=== PATIENT | female | born 1930 | race Caucasian/White ===

== ENCOUNTER 2017-08-27 05:29 | Inpatient (IN) | payer OTHER, MEDICARE ==
--- NOTE | 2017-08-27 05:57 | EDPHY ---
H & P Stated Complaint: Hematuria, painful to pee Time Seen by Provider: 08/27/17 05:41 HPI/ROS: Chief Complaint: Blood in urine, frequent urination HPI: 86-year-old woman has been having increased urinary frequency with burning with urination and blood in your urine since midnight. She states she has got about about 10 times. She had some well abdominal cramping. Significant worsening pain when she urinates. His has multiple clots. Does not have a history of similar episodes in the past. No fevers or chills. No nausea or vomiting. She is not on any blood thinning medications. She is had a hysterectomy. Does not believe it is vaginal. ROS: 10 point Review of Systems is negative except as noted in the HPI. PMH: Denies Social History: No smoking Family History: non-contributory Physical Exam: Gen: Awake, Alert, No Distress HEENT: Nose: no rhinorrhea Eyes: PERRLA, EOMI Mouth: Moist mucosa Neck: Supple, no JVD Chest: nontender, lungs clear to auscultation Heart: S1, S2 normal, no murmur Abd: Soft, moderate suprapubic tenderness to palpation, no guarding Back: no CVA tenderness, no midline tenderness Ext: no edema, non-tender Skin: no rash Neuro: CN II-XII intact, Sensation grossly intact, Strength 5/5 in bilateral upper and lower extremities - Personal History Current Tetanus Diphtheria and Acellular Pertussis (TDAP): Unsure - Medical/Surgical History Hx Asthma: No Hx Chronic Respiratory Disease: No Hx Diabetes: No Hx Cardiac Disease: No Hx Renal Disease: No Hx Cirrhosis: No Hx Alcoholism: No Hx HIV/AIDS: No Hx Splenectomy or Spleen Trauma: No Other PMH: Vertigo, "left vent blockage" - Social History Smoking Status: Never smoked Constitutional: Initial Vital Signs Temperature (C) 36.8 C 08/27/17 05:30 Heart Rate 89 08/27/17 05:30 Respiratory Rate 20 08/27/17 05:30 Blood Pressure 166/84 H 08/27/17 05:30 O2 Sat (%) 94 08/27/17 05:30 O2 Delivery Mode Room Air Allergies/Adverse Reactions: No Known Allergies Allergy (Unverified 08/27/17 05:30) Medical Decision Making ED Course/Re-evaluation: Bladder scan shows 750 mL in her bladder. Irrigating Becerra was placed. Patient passed large amounts of blood and clots. I have ordered a CBC and coags. Urinalysis initially was rejected but now has been sent. Given her age and her gross hematuria with clots in urinary retention I discussed with the hospitalist, Dr. Carias. - Data Points Laboratory Results: Laboratory Results 08/27/17 06:45 08/27/17 06:45 08/27/17 08/27/17 08/27/17 06:45 06:45 06:45 WBC RBC Hgb Hct MCV MCH MCHC RDW Plt Count MPV Neut % (Auto) Lymph % (Auto) Phillips % (Auto) Eos % (Auto) Baso % (Auto) Nucleat RBC Rel Count Absolute Neuts (auto) Absolute Lymphs (auto) Absolute Monos (auto) Absolute Eos (auto) Absolute Basos (auto) Absolute Nucleated RBC Immature Gran % Immature Gran # PT 14.4 SEC SEC (12.0-15.0) INR 1.10 (0.83-1.16) APTT 26.7 SEC SEC (23.0-38.0) Sodium 139 mEq/L mEq/L (135-145) Potassium 4.5 mEq/L mEq/L (3.3-5.0) Chloride 102 mEq/L mEq/L (97-110) Carbon Dioxide 26 mEq/l mEq/l (22-31) Anion Gap 11 mEq/L mEq/L (8-16) BUN 24 mg/dL H mg/dL (7-23) Creatinine 0.6 mg/dL mg/dL (0.6-1.0) Estimated GFR > 60 Glucose 103 mg/dL H mg/dL (70-100) Calcium 8.7 mg/dL mg/dL (8.5-10.4) Urine Color Pending Urine Appearance Pending Urine pH Pending Ur Specific Tullos Pending Urine Protein Pending Urine Ketones Pending Urine Blood Pending Urine Nitrate Pending Urine Bilirubin Pending Urine Urobilinogen Pending Ur Leukocyte Esterase Pending Urine Glucose Pending 08/27/17 08/27/17 06:45 05:57 WBC 7.08 10^3/uL 10^3/uL (3.80-9.50) RBC 4.13 10^6/uL L 10^6/uL (4.18-5.33) Hgb 12.8 g/dL g/dL (12.6-16.3) Hct 38.1 % % (38.0-47.0) MCV 92.3 fL fL (81.5-99.8) MCH 31.0 pg pg (27.9-34.1) MCHC 33.6 g/dL g/dL (32.4-36.7) RDW 13.4 % % (11.5-15.2) Plt Count 217 10^3/uL 10^3/uL (150-400) MPV 9.6 fL fL (8.7-11.7) Neut % (Auto) 77.4 % H % (39.3-74.2) Lymph % (Auto) 15.5 % % (15.0-45.0) Phillips % (Auto) 5.8 % % (4.5-13.0) Eos % (Auto) 0.6 % % (0.6-7.6) Baso % (Auto) 0.4 % % (0.3-1.7) Nucleat RBC Rel Count 0.0 % % (0.0-0.2) Absolute Neuts (auto) 5.48 10^3/uL 10^3/uL (1.70-6.50) Absolute Lymphs (auto) 1.10 10^3/uL 10^3/uL (1.00-3.00) Absolute Monos (auto) 0.41 10^3/uL 10^3/uL (0.30-0.80) Absolute Eos (auto) 0.04 10^3/uL 10^3/uL (0.03-0.40) Absolute Basos (auto) 0.03 10^3/uL 10^3/uL (0.02-0.10) Absolute Nucleated RBC 0.00 10^3/uL 10^3/uL (0-0.01) Immature Gran % 0.3 % % (0.0-1.1) Immature Gran # 0.02 10^3/uL 10^3/uL (0.00-0.10) PT INR APTT Sodium Potassium Chloride Carbon Dioxide Anion Gap BUN Creatinine Estimated GFR Glucose Calcium Urine Color REJ Urine Appearance REJ Urine pH REJ Ur Specific Tullos REJ Urine Protein REJ Urine Ketones REJ Urine Blood REJ Urine Nitrate REJ Urine Bilirubin REJ Urine Urobilinogen REJ Ur Leukocyte Esterase REJ Urine Glucose REJ Departure - Departure Disposition: [facility] Inpatient Acute Clinical Impression: Hematuria, Urinary retention Condition: Fair Referrals: Merissa Canseco MD [Primary Care Provider] - As per Instructions
[2017-08-27 06:55] LABS: PLATELET COUNT 217 10^3/uL (150-400)
[2017-08-27 07:03] LABS: INR 1.1 (0.83-1.16); PROTIME(PATIENT) 14.4 SEC (12.0-15.0)
[2017-08-27] MEDS ORDERED: ONDANSETRON 4 MG/2 ML VIAL IVP PRN (07:48)
[2017-08-27] MEDS: NS 1,000 ML IV SCH ×2 (10:04→23:56)
[2017-08-27] MEDS ORDERED: CARBOXYMETHYLCELLULOSE 1% 0.4 ML DROPERETTE EACHEYE PRN (11:01)
--- NOTE | 2017-08-27 11:27 | GHP ---
[f rep st] HISTORY AND PHYSICAL DATE OF ADMISSION: 08/27/2017 HISTORY OF PRESENT ILLNESS: The patient is a pleasant 86-year-old female with a history of left bund le branch block, presents with hematuria. Yesterday, she noticed some pinkish urine with some small red dots in it. Overnight, between midnight and 5 a.m., she had about 5 episodes of urinary urgency with passing of clots and difficulty urinating. She has had no fever and chills. It is not clear th at she had dysuria prior to this. She has had no flank pain. No previous history of hematuria. She has been a lifelong nonsmoker. e has not had drenching night sweats or unexplained weight loss lately. REVIEW OF SYSTEMS: Complete 10-point review of systems conducted and negative, except as noted in th e HPI. ALLERGIES: No known drug allergies. HOME MEDICATIONS: Aspirin, carboxymethylcellulose, cyanocobalamin, doxepin, multivitamin, and herbal s. PAST MEDICAL HISTORY: Left bundle branch block, coronary artery disease, managed medically. SOCIAL HISTORY: She lives with her son. Her last October 13. FAMILY HISTORY: Reviewed and unremarkable. Parents . PHYSICAL EXAMINATION: VITAL SIGNS: Temp 37, blood pressure 166/84, pulse 89, breathing 20 times a m inute, 94% on room air. GENERAL: No acute distress. HEENT: Sclerae anicteric. Oropharynx clear. Mucous membranes are moist. NECK: Supple, without lymphadenopathy or JVD. LUNGS: Clear to auscul tation bilaterally. HEART: S1, S2, without murmurs. ABDOMEN: Soft, nontender, nondistended. LOWE R EXTREMITIES: Without edema. Calves are nontender. SKIN: Without rash. : Exam shows pink uri ne in the Becerra. There is no suprapubic tenderness. LABS: White count 7.1, hematocrit 38. Platelets are 217,000. Coags are normal. Sodium 139, potass ium 4.5, chloride 102, bicarb 26, BUN 24, creatinine 0.6. Glucose is 103. UA shows 50-180 red cells , 50-180 white cells. There is no imaging. I have discussed the case with Dr. Ernst Hunter. ASSESSMENT/PLAN: An 86-year-old female with gross hematuria. 1. Gross hematuria with obstruction. Three-way Becerra is in place. We will continue this today. 2. Causative hematuria. I have ordered an ultrasound to evaluate for a renal mass or large kidney s tone or bladder clot. She will ultimately need cystoscopy sooner if there is an obstructing clot. 3. Coronary disease. We will follow. Continue her aspirin after her hematuria has resolved. This is not the cause of her hematuria. 4. Prophylaxis. Pharmacologic prophylaxis indicated, but for now, we will continue with SCDs. 5. Disposition: Inpatient status as I anticipate greater than 2 midnights required for the manageme nt of gross hematuria. /[id number]/MODL
[2017-08-27] MEDS: CYANO/VITAMIN B12 1000 MCG TAB PO SCH (12:12)
--- NOTE | 2017-08-27 14:03 | PDMN ---
Medical Necessity Medical necessity: est los>2mn for eval and rx of gross hematuria with obstruction, r/o renal mass vs large kidney stone vs bladder clot; admit for Becerra/CBI, imaging, and possible cysto; comorbid L BBB, CAD on ASA; per order and H&P 08/27/17
[2017-08-28] MEDS: ACETAMINOPHEN 325 MG TAB PO PRN (03:40)
[2017-08-28 05:08] LABS: PLATELET COUNT 214 10^3/uL (150-400)
[2017-08-28 05:21] LABS: INR 1.1 (0.83-1.16); PROTIME(PATIENT) 14.4 SEC (12.0-15.0)
[2017-08-28] MEDS ORDERED: Herbals/Supplements -Info Only PO SCH (09:00)
[2017-08-28] MEDS: MULTIVITAMINS 1 EACH TAB PO SCH (09:08)
[2017-08-28] MEDS: CYANO/VITAMIN B12 1000 MCG TAB PO SCH (09:08)
--- NOTE | 2017-08-28 13:56 | HOSPPROG ---
Hospitalist Progress Note Assessment/Plan: 86 yo F w hemorrhagic cystitis hemorrhagic cystitis: dc bladder irrigation dc willoughby hematuria: needs outpt cystoscopy ultrasounds neg for renal mass UTI: presumed cause continue abx proph: scd's given hematuria Subjective: case d/w dr nolasco- no renal mass, no clot in bladder Objective: Vital Signs Temp Pulse Resp BP Pulse Ox 36.8 C 77 18 132/64 H 92 08/28/17 10:05 08/28/17 10:05 08/28/17 10:05 08/28/17 10:05 08/28/17 10:05 Laboratory Results 08/28/17 04:24 08/28/17 04:24 08/27/17 08/28/17 08/29/17 05:59 05:59 05:59 Intake Total 1452 650 Output Total 3725 Balance -2273 650 PT 14.4 SEC (12.0-15.0) 08/28/17 04:24 INR 1.10 (0.83-1.16) 08/28/17 04:24 ICD10 Worksheet Patient Problems: Problems Problem Status Onset Hematuria Acute Urinary retention Acute
--- NOTE | 2017-08-28 16:13 | ASMTCMCOM ---
CM Note CM Note Notes: Pt admitted with hemorrhagic cystitis. Spoke with RN; bladder irrigation & willoughby discontinued. Spoke with PT; recommending home w/supervision. OT recommending home vs HHC. Met with pt & her son, Flaco, to discuss dc poc. Pt & Flaco decline HHC. Pt states she used to live at the [facility], but now lives with Flaco. Anticipate dc home with support of son when medically stable. CM available if needs/changes. Dc plan-Independent Date Signed: 08/28/2017 04:12 PM Electronically Signed By:Loida Artis RN
[2017-08-29] MEDS: LIDOCAINE 2% JELLY 5 ML TUBE TP PRN ×3 (01:50→10:50)
[2017-08-29] MEDS: ACETAMINOPHEN 325 MG TAB PO PRN ×2 (04:32→20:53)
--- NOTE | 2017-08-29 09:03 | HOSPPROG ---
Hospitalist Progress Note Assessment/Plan: 86 yo F w hemorrhagic cystitis hemorrhagic cystitis: now w urinary retention and clots 1. [address] way willoughby w bladder irrigation 2. needs inpatient cystoscopy hematuria: needs inpt cystoscopy ultrasounds neg for renal mass UTI: presumed cause continue ceftriaxone likely e coli proph: scd's given hematuria Subjective: lower abdominal pain w blood clots and urinary retention Objective: Vital Signs Temp Pulse Resp BP Pulse Ox 36.5 C 75 16 165/80 H 92 08/29/17 08:00 08/29/17 08:00 08/29/17 08:00 08/29/17 08:00 08/29/17 08:00 Laboratory Results 08/28/17 04:24 08/28/17 04:24 08/28/17 08/29/17 08/30/17 05:59 05:59 05:59 Intake Total 1452 950 Output Total 3725 2600 Balance -2273 -1650 PT 14.4 SEC (12.0-15.0) 08/28/17 04:24 INR 1.10 (0.83-1.16) 08/28/17 04:24 - Physical Exam Constitutional: no apparent distress, appears nourished Eyes: PERRL, anicteric sclera Ears, Nose, Mouth, Throat: moist mucous membranes, hearing normal Cardiovascular: regular rate and rhythym, no murmur, rub, or gallop Respiratory: no respiratory distress, no rales or rhonchi Gastrointestinal: normoactive bowel sounds, soft, non-tender abdomen Genitourinary: No no bladder fullness, No no bladder tenderness Skin: warm, normal color Musculoskeletal: full muscle strength, no muscle tenderness Neurologic: AAOx3 Psychiatric: interacting appropriately ICD10 Worksheet Patient Problems: Problems Problem Status Onset Hematuria Acute Urinary retention Acute
[2017-08-29] MEDS: MULTIVITAMINS 1 EACH TAB PO SCH (10:07)
[2017-08-29] MEDS: CYANO/VITAMIN B12 1000 MCG TAB PO SCH (10:07)
[2017-08-30] MEDS: CYANO/VITAMIN B12 1000 MCG TAB PO SCH (08:09)
[2017-08-30] MEDS: MULTIVITAMINS 1 EACH TAB PO SCH (08:09)
--- NOTE | 2017-08-30 09:21 | HOSPPROG ---
Hospitalist Progress Note Assessment/Plan: 86 yo F w hemorrhagic cystitis hemorrhagic cystitis: now w urinary retention and clots 1. [address] way willoughby w bladder irrigation 2. needs inpatient cystoscopy now NPO urine has cleared but still w clos ? zoster: no rash, but typical sx start valtrex hematuria: needs inpt cystoscopy ultrasounds neg for renal mass UTI: presumed cause continue ceftriaxone likely e coli proph: scd's given hematuria Subjective: pham flank pain. smilar to previous episode shingles Objective: Vital Signs Temp Pulse Resp BP Pulse Ox 36.8 C 76 18 145/65 H 90 L 08/30/17 08:00 08/30/17 08:00 08/30/17 08:00 08/30/17 08:00 08/30/17 08:00 Laboratory Results 08/28/17 04:24 08/28/17 04:24 08/29/17 08/30/17 08/31/17 05:59 05:59 05:59 Intake Total 950 Output Total 2600 5875 Balance -1650 -5875 PT 14.4 SEC (12.0-15.0) 08/28/17 04:24 INR 1.10 (0.83-1.16) 08/28/17 04:24 - Physical Exam Constitutional: no apparent distress, appears nourished Eyes: PERRL, anicteric sclera Ears, Nose, Mouth, Throat: moist mucous membranes, hearing normal Cardiovascular: regular rate and rhythym, no murmur, rub, or gallop Respiratory: no respiratory distress, no rales or rhonchi Gastrointestinal: normoactive bowel sounds, soft, non-tender abdomen Genitourinary: willoughby in urethra, other (pink urine w clots) Skin: warm, normal color Musculoskeletal: full muscle strength Neurologic: AAOx3, sensation intact bilaterally Psychiatric: interacting appropriately, not anxious Lymph, Heme, Immunologic: no cervical LAD ICD10 Worksheet Patient Problems: Problems Problem Status Onset Hematuria Acute Urinary retention Acute
[2017-08-30] MEDS: valACYclovir 500 MG TAB PO SCH ×2 (10:53→20:47)
[2017-08-30] MEDS ORDERED: IOPAMIDOL (ISOVUE-300) 100 ML BTL ONE (16:13)
[2017-08-30] MEDS: ACETAMINOPHEN 325 MG TAB PO PRN (21:03)
[2017-08-31] MEDS: valACYclovir 500 MG TAB PO SCH (08:03)
[2017-08-31] MEDS: CYANO/VITAMIN B12 1000 MCG TAB PO SCH (08:03)
[2017-08-31] MEDS: MULTIVITAMINS 1 EACH TAB PO SCH (08:03)
--- NOTE | 2017-08-31 14:59 | HOSPPROG ---
Hospitalist Progress Note Assessment/Plan: # hematuria - likely d/t UTI - currently has 3 way willoughby that is clamped; hematuria resolving - appreciate Dr Ku's assistance # UTI d/t ricardo sens e. coli - change abx to ancef today # ?cholecystitis/hydrops - no clinical evidence of cholecystitis, labs normal - has an odd history of abd complaints she attributes to zoster - could consider outpatient w/u, but doubt the risks of surgery outweigh the benefits # ?zoster - valtrex started Subjective: 3 way willoughby clamped by Dr Ku - no hematuria Objective: Vital Signs Temp Pulse Resp BP Pulse Ox 36.9 C 84 16 119/61 91 L 08/31/17 08:00 08/31/17 08:00 08/31/17 08:00 08/31/17 08:00 08/31/17 08:00 Laboratory Results 08/28/17 04:24 08/31/17 12:25 08/30/17 08/31/17 09/01/17 05:59 05:59 05:59 Intake Total 1130 Output Total 5875 950 Balance -5875 180 PT 14.4 SEC (12.0-15.0) 08/28/17 04:24 INR 1.10 (0.83-1.16) 08/28/17 04:[address] and CT reviewed - Physical Exam Constitutional: no apparent distress, appears nourished Cardiovascular: regular rate and rhythym, no murmur, rub, or gallop Respiratory: no respiratory distress, no rales or rhonchi, clear to auscultation Gastrointestinal: soft, non-tender abdomen, no palpable masses Genitourinary: willoughby in urethra (clear urine) ICD10 Worksheet Patient Problems: Problems Problem Status Onset Hematuria Acute Urinary retention Acute
--- NOTE | 2017-08-31 15:29 | ASMTCMCOM ---
CM Note CM Note Notes: CM met w/ pt and son for dispo planning. CM provided pt w/ a list of HC agencies. Therapies are recommending HC w/ 24hr supervision. Pt is declining HC services at this time. CM informed pt that if she changes her mind to have HC after she has left the hospital she can contact her PCP to set up HC. CM provided pt w/ CM's phone number to contact if she changes her mind. CM available for changes. Plan: Independent Date Signed: 08/31/2017 03:28 PM Electronically Signed By:RANDALL Mckeon
[2017-08-31 16:46] VITALS: BP 140/88
[2017-08-31] MEDS ORDERED: POLYETHYLENE GLYCOL 3350 17 GM PKT PO PRN (18:12)
[2017-08-31] MEDS ORDERED: MAGNESIUM HYDROXIDE 30 ML UDCUP PO PRN (18:12)
[2017-08-31] MEDS ORDERED: LACTULOSE 20 GM/30 ML UDCUP PO PRN (18:12)
[2017-08-31] MEDS ORDERED: BISACODYL 10 MG SUPP PR PRN (18:12)
--- NOTE | 2017-08-31 19:55 | PDCONSULT ---
Long Term Note: RFC: hematuria Request by Dr. Artis HPI 86F admitted w gross hematuria and found to have E coli UTI. Was on CBI. Hematuria resolved, CBI stopped, and now willoughby is out. She has voided well since willoughby removed earlier today. No hx hematuria in past. No hx frequent UTIs. +constipation Hx shingles, feels she has shingles currently, pain without vesicles. Pain anterior under breasts, pain back. CTU performed, images reviewed - no etiology for hematuria- kidneys normal, no masses. Ureters delicate, no hydronephrosis, no hydroureter. Bladder w willoughby, not well distended, but no filling defects. ROS 10pt ROS performed, as stated in HPI, otherwise neg. PMH/PSH reviewed. SH/FH noncontributory PE Gen NAD, A&O CV regular Lungs normal effort Abd soft, nontender Ext warm Labs: reviewed. A/P E coli UTI w gross hematuria. Has been on IV abx. Voided well on own. OK for Discharge from urology standpoint. Recommend total 10days appropriate abx. Follow up w me in 1-2 weeks at my [facility] location.
[2017-08-31] MEDS ORDERED: SENNOSIDES/DOCUSATE SODIUM TAB PO SCH (21:00)
--- NOTE | 2017-09-01 15:50 | GDS ---
[f rep st] DISCHARGE SUMMARY ALL DIAGNOSES: 1. Hematuria. 2. Urinary tract infection due to pansensitive Escherichia coli. 3. Questionable cholecystitis/hydrops of the gallbladder. 4. Questionable zoster. HOSPITAL COURSE: An 86-year-old female, admitted with gross hematuria. This is likely due to a urin denisse tract infection. She grew out E coli from her urine, which was pansensitive. She had a 3-way Fo richard catheter placed and underwent CBI. Her urine eventually cleared after a few days. Able to remov e the Becerra, and she was able to urinate normally. She was seen by Dr. Escamilla on the day of discha rge. Plan will be to follow up with Dr. Escamilla in 1-2 weeks. She had questionable gallstone lodged in the neck of her gallbladder. She had no symptoms relatable to this. Her LFTs were normal. I do not suspect that she had acute cholecystitis. She may follow u p with her primary care physician for ongoing management. I suspect that the risk of any sort of myriam gical intervention in this 86-year-old, who is relatively asymptomatic from this, outweighs any benef its. She was discharged later in the evening by my partner after clearing this with me. Because of this, I called and left a message for the patient the day after discharge. I was unable to get in touch wi th her. I did speak with her son and went over all these issues with him and encouraged followup wit h both Dr. Canseco, as well as Dr. Escamlila. He is aware of this. /[id number]/MODL
== END 2017-08-31 20:38 | disposition home or self-care (01) | DRG 690 ==
LOC: OBSVTOIN 07:48 → F3E 08:23
PROVIDERS: ADMIT Family Medicine; ATTEND Family Medicine
DX: N30.91 Cystitis, unspecified with hematuria (principal); K80.10 Calculus of gallbladder with chronic cholecystitis without obstruction; B96.20 Unspecified Escherichia coli [E. coli] as the cause of diseases classified elsewhere; B02.9 Zoster without complications; I25.10 Atherosclerotic heart disease of native coronary artery without angina pectoris; I44.7 Left bundle-branch block, unspecified
CPT/HCPCS: 97116-GP; 97161-GP; 97165-GO; 97530-GO; 97535-GO; G8978-GP-CI; G8979-GP-CI; G8980-GP-CI; G8987-GO-CJ; G8988-GO-CI; J0696; Q9967

== ENCOUNTER → 2017-12-02 | Outpatient (CLI) | payer OTHER, MEDICARE | LOC: FIMAGING 08:13 | PROVIDERS: ATTEND Internal Medicine | DX: K80.20 Calculus of gallbladder without cholecystitis without obstruction (principal) ==